=== PATIENT | female | born 1980 | race Caucasian/White ===

== ENCOUNTER 2023-05-07 18:33 | Emergency (ER) | payer MEDICAID ==
[2023-05-07] MEDS ORDERED: LIDOCAINE JELLY 2% 6 ML JEL.PF.APP TOP STA (18:53)
[2023-05-07 18:56] VITALS: O2SAT 98
--- NOTE | 2023-05-07 18:57 | ED Physician Documentation ---
PD HPI ABD PAIN - Stated complaint Stated Complaint: FEEDING TUBE CAME OUT - Chief complaint Chief Complaint: Abd Pain - History obtained from History obtained from: Patient (Undergoing cancer treatment and has a G-tube in place and it popped out just prior to arrival.) PD PAST MEDICAL HISTORY - Allergies Allergies/Adverse Reactions: Allergies Allergy/AdvReac Type Severity Reaction Status Date / Time amoxicillin Allergy Hives Verified 04/14/23 20:54 latex Allergy Rash Verified 04/14/23 20:54 citrate buffer Allergy Anaphylaxis Uncoded 04/14/23 20:55 PD ED PE NORMAL - Vitals Vital signs reviewed: Yes - General General: Alert and oriented X 3, No acute distress - Abdomen Abdomen: Normal bowel sounds, Soft, Non tender, Other (PEG tube site left upper quadrant) - Neuro Neuro: Alert and oriented X 3, Normal speech Results - Vitals Vitals: Vital Signs - 24 hr 05/07/23 05/07/23 18:45 20:24 Temperature 36 C L Heart Rate 65 60 Respiratory 16 16 Rate Blood Pressure 96/82 H 102/67 O2 Saturation 98 98 Oxygen O2 Source Room air - Rads (name of study) X-ray with Gastrografin to check tube function showing Gastrografin in the gastric lumen, no extraluminal contrast. Relevant Findings:: Final report received, EMP independent interpretation of test PD Medical Decision Making - ED course ED course: She had the PEG tube with her, she did not tolerate initial effort at replacement and a smaller coud Wood was placed to keep the track open pending some local anesthesia with lidocaine jelly. Subsequently I was able to replace her PEG tube and will check placement with x- ray with Gastrografin. Departure - Departure Disposition: 01 Home, Self Care Clinical Impression: S/P percutaneous endoscopic gastrostomy (PEG) tube placement, Migration of percutaneous endoscopic gastrostomy (PEG) tube Condition: Stable Record reviewed to determine appropriate education?: Yes Instructions: ED G Tube Replacement Forms: PCP List Discharge Date/Time: 05/07/23 20:24
[2023-05-07] MEDS ORDERED: HYDROcodone/ACETAM 7.5 MG/325 MG 15 ML UDC PO STA (19:29)
[2023-05-07] MEDS ORDERED: DIATR MEGLU/DIATRIZOATE SODIUM 120 ML BOTTLE PEG ONE (19:40)
[2023-05-07] MEDS ORDERED: DIATR MEGLU/DIATRIZOATE SODIUM 120 ML BOTTLE ONE (20:04)
[2023-05-07 20:27] VITALS: BP 102/67
--- NOTE | 2023-05-07 20:27 | XRAY Report ---
PROCEDURE: Abdomen 1 View X-Ray INDICATIONS: With Gastrografin via PEG tube to evaluate PEG tub TECHNIQUE: One view of the abdomen acquired. COMPARISON: 04/14/2023 FINDINGS: Percutaneous gastrostomy tube is present. Contrast injected through the tube opacifies the stomach bora men. No extraluminal contrast visualized. Non obstructive bowel gas pattern. IMPRESSION: Percutaneous gastrostomy tube is present. Contrast injected through the tube opacifies the stomach bora men. No extraluminal contrast visualized. Reviewed by: Ang Reed MD on 05/07/2023 8:26 PM PDT Approved by: Ang Reed MD on 05/07/2023 8:26 PM PDT Station ID: [id number]
== END 2023-05-07 20:24 | disposition home or self-care (01) ==
LOC: ED 18:33
DX: K94.23 Gastrostomy malfunction (principal)
CPT/HCPCS: 43762; 74018; 99283; A9270; Q9963

== ENCOUNTER 2023-06-14 11:06 | Outpatient (CLI) | payer MEDICAID ==
[2023-06-14 14:56] LABS: BASOPHILS # (AUTO) 0.1 10^3/uL (0.0-0.1); BASOPHILS % (AUTO) 0.8 %; EOSINOPHILS # (AUTO) 0.1 10^3/uL (0.0-0.7); EOSINOPHILS % (AUTO) 1.4 %; HCT - HEMATOCRIT 41.2 % (37.0-47.0); HGB - HEMOGLOBIN 13.1 g/dL (12.0-16.0); LYMPHOCYTES # (AUTO) 1.2 10^3/uL (1.5-3.5); LYMPHOCYTES % (AUTO) 19.1 %; MEAN CORPUSCULAR HEMOGLOBIN 28.2 pg (27.0-31.0); MEAN CORPUSCULAR HGB CONC 31.8 g/dL (32.0-36.0); MEAN CORPUSCULAR VOLUME 88.8 fL (81.0-99.0); MEAN PLATELET VOLUME 9.5 fL (7.9-10.8); MONOCYTES # (AUTO) 0.7 10^3/uL (0.0-1.0); MONOCYTES % (AUTO) 10.4 %; NEUTROPHILS # (AUTO) 4.3 10^3/uL (1.5-6.6); NEUTROPHILS % (AUTO) 68.1 %; PLT - PLATELET COUNT 435 10^3/uL (130-450); RED BLOOD COUNT 4.64 10^6/uL (4.20-5.40); RED CELL DISTRIBUTION WIDTH 12.8 % (12.0-15.0); WHITE BLOOD COUNT 6.3 x10^3/uL (4.8-10.8)
[2023-06-14 16:59] LABS: ALBUMIN 4.2 g/dL (3.2-5.5); ALBUMIN/GLOBULIN RATIO 1.5 (1.0-2.2); ALKALINE PHOSPHATASE 66 IU/L (42-121); ALT ALANINE AMINOTRANSFERASE 14 IU/L (10-60); AST ASPARTATE AMINOTRANSFERASE 17 IU/L (10-42); BILIRUBIN,TOTAL 0.4 mg/dL (0.2-1.0); BUN - BLOOD UREA NITROGEN 8 mg/dL (6-20); CALCIUM 9.5 mg/dL (8.5-10.3); CARBON DIOXIDE - CO2 29 mmol/L (21-32); CHLORIDE 103 mmol/L (101-111); CHOL/HDL RATIO 2.8 (<4.4); CHOLESTEROL 204 mg/dL; CREATININE 0.6 mg/dL (0.6-1.3); GFR - MDRD 109 (>89); GLUCOSE 89 mg/dL (74-104); HDL CHOLESTEROL 74 mg/dL; LDL CHOLESTEROL,CALCULATED 109 mg/dL; LDL/HDL RATIO 1.5 (<4.4); POTASSIUM 4.4 mmol/L (3.5-4.5); SODIUM 138 mmol/L (135-145); TRIGLYCERIDES 106 mg/dL (48-352); VLDL CHOLESTEROL 21 mg/dL
[2023-06-14 17:49] LABS: THYROID STIMULATING HORMONE 5.01 uIU/mL (0.34-5.60)
== END 2023-06-14 11:07 | disposition home or self-care (01) ==
LOC: LAB.S 11:06
PROVIDERS: ATTEND Physician Assistant Medical
DX: E03.9 Hypothyroidism, unspecified (principal); Z13.9 Encounter for screening, unspecified
CPT/HCPCS: 36415; 80053; 80061; 83721; 84443; 85025

== ENCOUNTER 2023-08-12 11:26 | Emergency (ER) | payer MEDICAID ==
[2023-08-12 12:01] LABS: BASOPHILS % (AUTO) 0.8 %; EOSINOPHILS # (AUTO) 0.2 10^3/uL (0.0-0.7); HCT - HEMATOCRIT 45.1 % (37.0-47.0); HGB - HEMOGLOBIN 14.5 g/dL (12.0-16.0); MEAN CORPUSCULAR HEMOGLOBIN 28.5 pg (27.0-31.0); MEAN CORPUSCULAR HGB CONC 32.2 g/dL (32.0-36.0); MEAN CORPUSCULAR VOLUME 88.8 fL (81.0-99.0); MONOCYTES # (AUTO) 0.4 10^3/uL (0.0-1.0); MONOCYTES % (AUTO) 8.8 %; NEUTROPHILS # (AUTO) 3.1 10^3/uL (1.5-6.6); PLT - PLATELET COUNT 403 10^3/uL (130-450); RED BLOOD COUNT 5.08 10^6/uL (4.20-5.40); RED CELL DISTRIBUTION WIDTH 12.2 % (12.0-15.0); WHITE BLOOD COUNT 4.8 x10^3/uL (4.8-10.8)
[2023-08-12 12:14] LABS: ALBUMIN 4.3 g/dL (3.2-5.5); ALBUMIN/GLOBULIN RATIO 1.3 (1.0-2.2); BILIRUBIN,TOTAL 0.3 mg/dL (0.2-1.0); CALCIUM 9.2 mg/dL (8.5-10.3); CREATININE 0.6 mg/dL (0.6-1.3); POTASSIUM 3.5 mmol/L (3.5-4.5); TOTAL PROTEIN 7.5 g/dL (6.4-8.9)
[2023-08-12 12:25] LABS: BILIRUBIN,URINE NEGATIVE (NEGATIVE); GLUCOSE, URINE (UA) NEGATIVE (NEGATIVE); KETONES,URINE (UA) NEGATIVE (NEGATIVE); LEUKOCYTE ESTERASE, URINE NEGATIVE (NEGATIVE); NITRITE,URINE POSITIVE (NEGATIVE); OCCULT BLOOD,URINE TRACE-INTA (NEGATIVE); PROTEIN,URINE NEGATIVE (NEGATIVE); UROBILINOGEN,URINE 0.2 (NORMAL) E.U./dL (NORMAL)
[2023-08-12 12:39] LABS: BACTERIA,URINE Many /HPF (None Seen); CLARITY,URINE CLOUDY (CLEAR); MUCUS,URINE Marked Strands; RBC,URINE 0-5 /HPF (0-5); SQUAMOUS EPITHELIAL CELL,UR MANY Squamous (<= Few)
--- NOTE | 2023-08-12 12:44 | ED Physician Documentation ---
PD HPI ABD PAIN - Stated complaint Stated Complaint: ABD PX - Chief complaint Chief Complaint: Abd Pain - History obtained from History obtained from: Patient - Additional information Additional information: 43-year-old woman with history of head neck cancer in remission, previously PEG tube dependent, history of remote tubal ligation, known ovarian cysts and fibroids and amenorrheic related to a remote endometrial ablation presents with right pelvic pain since yesterday similar to prior ovarian cysts. No vaginal discharge or bleeding. She does note foul-smelling urine without frequency or urgency. No fevers. 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 Other Past Medical History: Left sided neck tumor - Past Surgical History Past Surgical History: Yes /VEHICLE UPHOLSTERER: Tubal ligation - Present Medications Home Medications: Ambulatory Orders Medication Instructions Recorded Confirmed Dextroamphetamine/Amphetamine 20 mg PO BID 08/12/23 08/12/23 [Dextroamp-Amphetamine 5 mg Tab] HYDROcod/ACETAM 5/325 [[place] 5/325] 1 - 2 tab PO Q6H PRN #10 tablet 08/12/23 Levothyroxine [Synthroid] 100 mcg PO QDAC 08/12/23 08/12/23 Nitrofurantoin [Macrobid] 1 cap PO BID #10 cap 08/12/23 - Allergies Allergies/Adverse Reactions: Allergies Allergy/AdvReac Type Severity Reaction Status Date / Time amoxicillin Allergy Hives Verified 08/12/23 11:47 latex Allergy Rash Verified 08/12/23 11:47 malick Allergy Anaphylaxis Verified 08/12/23 11:47 orange Allergy Anaphylaxis Verified 08/12/23 11:47 pineapple Allergy Anaphylaxis Verified 08/12/23 11:47 citrate buffer Allergy Anaphylaxis Uncoded 08/12/23 11:47 - Social History Does the pt smoke?: Yes Smoking Status: Current every day smoker PD ED PE NORMAL - Vitals Vital signs reviewed: Yes - General General: Alert and oriented X 3, No acute distress - Abdomen Abdomen: Normal bowel sounds, Soft, Other (Mild right pelvic tenderness inferomedial to McBurney's point, no surgical signs) - Back Back: No CVA TTP, No spinal TTP - Neuro Neuro: Alert and oriented X 3, Normal speech Results - Vitals Vitals: Vital Signs - 24 hr 08/12/23 11:37 Temperature 36 C L Heart Rate 104 H Respiratory 16 Rate Blood Pressure 112/92 H O2 Saturation 94 Oxygen O2 Source Room air - Labs Labs: Laboratory Tests 08/12/23 08/12/23 08/12/23 11:50 11:56 11:56 WBC 4.8 RBC 5.08 Hgb 14.5 Hct 45.1 MCV 88.8 MCH 28.5 MCHC 32.2 RDW 12.2 Plt Count 403 MPV 9.0 Neut # (Auto) 3.1 Lymph # (Auto) 1.0 L [place] # (Auto) 0.4 Eos # (Auto) 0.2 Baso # (Auto) 0.0 Absolute Nucleated RBC 0.00 Nucleated RBC % 0.0 Sodium 138 Potassium 3.5 Chloride 101 Carbon Dioxide 29 Anion Gap 8.0 BUN 5 L Creatinine 0.6 Estimated GFR (MDRD) 109 Glucose 79 Calcium 9.2 Total Bilirubin 0.3 AST 15 ALT 19 Alkaline Phosphatase 56 Total Protein 7.5 Albumin 4.3 Globulin 3.2 Albumin/Globulin Ratio 1.3 Lipase 11 Urine Color YELLOW Urine Clarity CLOUDY Urine pH 6.0 Ur Specific Roundup 1.025 Urine Protein NEGATIVE Urine Glucose (UA) NEGATIVE Urine Ketones NEGATIVE Urine Occult Blood TRACE-INTA Urine Nitrite POSITIVE H Urine Bilirubin NEGATIVE Urine Urobilinogen 0.2 (NORMAL) Ur Leukocyte Esterase NEGATIVE Urine RBC 0-5 Urine WBC 11-25 H Ur Squamous Epith Cells MANY Squamous H Urine Bacteria Many H Urine Mucus Marked Strands Ur Microscopic Review INDICATED Urine Culture Comments NOT INDICATED PD Medical Decision Making - ED course ED course: She presents with right pelvic pain, she has a history of ovarian cysts and fibroids. Appendicitis is considered but fairly mild tenderness on exam and not in the typical location and her white count is low normal on CBC. CMP normal. Urinalysis does demonstrate positive nitrate and white cells so probably has a cystitis 2. I discussed with her options for image acquisition to rule out appendicitis. After discussion she would like to do watchful waiting given the low risk of appendicitis given her clinical presentation and labs. Departure - Departure Disposition: 01 Home, Self Care Clinical Impression: Pelvic pain in female Urinary tract infection Qualifiers: Urinary tract infection type: acute cystitis Hematuria presence: without hematuria Qualified Code(s): N30.00 - Acute cystitis without hematuria Condition: Good Record reviewed to determine appropriate education?: Yes Instructions: ED UTI Cystitis Female, ED Pelvic Pain UKO Prescriptions: Nitrofurantoin [Macrobid] 1 cap PO BID #10 cap HYDROcod/ACETAM 5/325 [[place] 5/325] 1 - 2 tab PO Q6H PRN #10 tablet PRN Reason: Pain Comments: I sent your prescriptions electronically to the [facility] in [place]. Please return immediately if you worsen or if you fail to improve over the next 24 hours or so, as discussed, appendicitis is very unlikely given the presentation and labs but still not completely impossible. Follow-up with [facility] gynecology as you are planning which I feel is appropriate.
[2023-08-12 13:02] VITALS: BP 112/72; O2SAT 100
== END 2023-08-12 12:55 | disposition home or self-care (01) ==
LOC: ED 11:26
DX: R10.2 Pelvic and perineal pain (principal); F17.200 Nicotine dependence, unspecified, uncomplicated
CPT/HCPCS: 36415; 80053; 81001; 81003; 83690; 85025; 87086; 99283

== ENCOUNTER 2023-11-29 12:57 | Outpatient (CLI) | payer MEDICAID ==
--- NOTE | 2023-12-05 09:47 | Mammography Report ---
BILATERAL DIGITAL SCREENING MAMMOGRAM 3D/2D WITH EXAGGERATED CC: 11/29/2023 CLINICAL: Routine screening. Family history of breast cancer. No prior exams were available for comparison. Both breasts are heterogeneously dense, which may obscure small masses (category c / 51-75% glandular tissue). No significant masses, calcifications, or other findings are seen in either breast. IMPRESSION: NEGATIVE There is no mammographic evidence of malignancy. A 1 year screening mammogram is recommended. Based on the Tyrer Cuzick model (a risk assessment model) the patient's lifetime risk is 9.0% and her 10 year risk is 1.4%. According to the ACR, ACS, and NCCN guidelines, an annual breast MRI exam yoanna g with mammogram is recommended if the patient's lifetime risk is 20% or greater. This exam was interpreted at Station ID: [id number]. NOTE: For mammograms, a report in lay terms will be sent to the patient. Approximately 15% of breast malignancies will not be visualized mammographically. In the management of a palpable breast mass, a negative mammogram must not discourage biopsy of a clinically suspicious lesion. Electronically Signed By: Manisha Ayala M.D., Ph.D. eb/estefanía:12/04/2023 13:51:47 letter sent: No_Letter ACR BI-RADS Category 1: Negative 3341F PARENCHYMAL PATTERN: (D) - The breast(s) demonstrate(s) heterogeneously dense fibroglandular parenchy ma. BI-RADS CATEGORY: (1) - 1 RECOMMENDATION: (ANNUAL) - Recommend routine annual screening mammography. [id number] 1 year screening LATERALITY: (B)
== END 2023-11-29 12:58 | disposition home or self-care (01) ==
LOC: DI 12:57
PROVIDERS: ATTEND Physician Assistant Medical
DX: Z12.31 Encounter for screening mammogram for malignant neoplasm of breast (principal); R92.333 Mammographic heterogeneous density, bilateral breasts; Z80.3 Family history of malignant neoplasm of breast

== ENCOUNTER 2023-12-20 08:20 | Outpatient (CLI) | payer MEDICAID ==
[2023-12-20] MEDS ORDERED: iohexoL-300 100 ML VIAL ONE (08:33)
[2023-12-20] MEDS: iohexoL-300 100 ML VIAL IVP ONE (08:45)
--- NOTE | 2023-12-20 14:56 | CT Report ---
PROCEDURE: CT neck with contrast INDICATIONS: 43-year-old female with new palpable abnormalities and history of oropharyngeal carcino ma. TECHNIQUE: Helical axial CT of the neck was obtained after an intravenous contrast injection, and re formatted in multiple planes. Radiation dose reduction was achieved using automated exposure control or adjustment of mA and/or kV according to patient size. COMPARISON: None. FINDINGS: Skull Base: The visualized intracranial contents, skull, and orbits are unremarkable. Visualized par anasal sinuses are clear. Pharynx and Larynx: Oropharynx is patulous, and the tongue appears somewhat asymmetrically atrophic on the left. Relatively decreased enhancement of the left parapharyngeal soft tissues, and there is b een a modified left neck dissection. Sternocleidomastoid intact.. Incidental note is made of soft tis leo plane extending. Palate to the posterior wall of the nasopharynx, possible mucosal band. Retroph aryngeal space unremarkable. Normal appearance of the false and true vocal cords. Muscles and Fascial Planes: Fascial planes are well maintained. No abscess or mass lesion. Lymph Nodes: No evidence of adenopathy. Vasculature: Unremarkable. Submandibular and Parotid Glands: Asymmetrically decreased left submandibular gland enhancement, pos sible sequela of XRT. Thyroid: Unremarkable. No enlarged or calcified nodules. Bones: No acute fracture. No osteolytic or blastic lesion is evident. Normal bone mineralization. D egenerative disc disease and arthropathy. Lung Apices: The visualized lung apices are clear. IMPRESSION: There is asymmetrically decreased enhancement of the left parapharyngeal soft tissues including the l eft submandibular gland. Associated left modified neck dissection sparing the sternocleidomastoid. No adenopathy or evidence of recurrent or residual disease Reviewed by: Gibran Noe MD on 12/20/2023 1:55 PM AKDT Approved by: Gibran Noe MD on 12/20/2023 1:55 PM AKDT Station ID: [id number]
== END 2023-12-20 08:21 | disposition home or self-care (01) ==
LOC: DI 08:20
DX: C10.9 Malignant neoplasm of oropharynx, unspecified (principal); Z98.890 Other specified postprocedural states
CPT/HCPCS: 70491; Q9967

== ENCOUNTER 2023-12-22 18:07 | Emergency (ER) | payer MEDICAID ==
--- NOTE | 2023-12-22 18:31 | ED Physician Documentation ---
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 She also has ovarian cysts with remote tubal ligation, fibroids, and endometrial ablation and is amenorrheic related to that. She is been having some ongoing lower abdominal pain related to known ovarian cyst but today, an hour ago at work developed sudden onset upper abdominal pain radiating to both shoulders that is completely different than what she has been having ongoing. She is not nauseous with it. No urinary complaints. PD PAST MEDICAL HISTORY - Past Medical History Past Medical History: Yes Cardiovascular: None Respiratory: None Neuro: Headaches, Migraines Endocrine/Autoimmune: HyPOthyroidism GI: Chronic diarrhea, Other HEEL REDUCER: Endometriosis, Ovarian cysts, Fibroids : None HEENT: None Psych: None Musculoskeletal: Osteoarthritis - Past Surgical History Past Surgical History: Yes /HEEL REDUCER: Endometrial ablation, Tubal ligation HEENT: Tonsil/Adenoidectomy - Present Medications Home Medications: Ambulatory Orders Medication Instructions Recorded Confirmed Dextroamphetamine/Amphetamine 20 mg PO BID 08/12/23 12/22/23 [Dextroamp-Amphetamine 5 mg Tab] Levothyroxine [Synthroid] 100 mcg PO QDAC 08/12/23 12/22/23 Norethindrone Acetate 5 mg ORAL DAILY 12/22/23 12/22/23 - Allergies Allergies/Adverse Reactions: Allergies Allergy/AdvReac Type Severity Reaction Status Date / Time amoxicillin Allergy Hives Verified 12/22/23 18:13 latex Allergy Rash Verified 12/22/23 18:13 malick Allergy Anaphylaxis Verified 12/22/23 18:13 orange Allergy Anaphylaxis Verified 12/22/23 18:13 pineapple Allergy Anaphylaxis Verified 12/22/23 18:13 citrate buffer Allergy Anaphylaxis Uncoded 08/12/23 11:47 - Social History Does the pt smoke?: Yes Smoking Status: Current every day smoker Does the pt drink ETOH?: Yes Does the pt have substance abuse?: Yes Substance Use and Type: Marijuana - Immunizations Immunizations are current?: Yes - POLST Patient has POLST: No PD ED PE NORMAL - Vitals Vital signs reviewed: Yes - General General: Alert and oriented X 3, Other (Appears mildly uncomfortable but not in overt distress.) - Cardiac Cardiac: RRR, No murmur - Respiratory Respiratory: No respiratory distress, Clear bilaterally - Abdomen Abdomen: Normal bowel sounds, Soft, Other (Mild diffuse tenderness most marked in the upper abdomen without surgical signs) - Extremities Extremities: No edema, No calf tenderness / cord - Neuro Neuro: Alert and oriented X 3 Results - Vitals Vitals: Vital Signs - 24 hr 12/22/23 12/22/23 12/22/23 18:13 18:52 20:19 Temperature 36.4 C L Heart Rate 84 81 66 Respiratory 18 20 16 Rate Blood Pressure 131/84 H 118/88 H 110/77 O2 Saturation 100 97 97 Oxygen O2 Source Room air - EKG (time done) 1838 EKG releavant findings:: EKG personally interpreted by author of this note. Relevant findings are: Rate: Rate (enter#) Rhythm: NSR [place]: Normal Intervals: Normal [place] QRS: Normal Ischemia: Non specific changes Computer interpretation: Agree with computer - Labs Labs: Laboratory Tests 12/22/23 12/22/23 18:40 18:40 WBC 5.3 RBC 4.26 Hgb 12.5 Hct 37.5 MCV 88.0 MCH 29.3 MCHC 33.3 RDW 12.7 Plt Count 394 MPV 9.4 Neut # (Auto) 3.5 Lymph # (Auto) 1.2 L [place] # (Auto) 0.3 Eos # (Auto) 0.1 Baso # (Auto) 0.1 Absolute Nucleated RBC 0.00 Nucleated RBC % 0.0 Sodium 138 Potassium 3.1 L Chloride 103 Carbon Dioxide 27 Anion Gap 8.0 BUN 4 L Creatinine 0.6 Estimated GFR (MDRD) 109 Glucose 94 Calcium 9.0 Total Bilirubin 0.3 AST 13 ALT 10 Alkaline Phosphatase 48 Total Protein 6.6 Albumin 4.0 Globulin 2.6 Albumin/Globulin Ratio 1.5 Lipase 19 - Rads (name of study) CT abd- neg Relevant Findings:: Final report received, EMP independent interpretation of test PD Medical Decision Making - ED course ED course: She presents with new severe sudden onset upper abdominal pain. She is tender which makes ACS less likely but will screen for with an EKG which was nonischemic. The gamut of intra-abdominal emergencies was considered. Workup demonstrates a normal CBC. CMP only notable for modest hypokalemia and she was given an IV dose of potassium. CT official read was normal/negative. That said to my eye she had a fairly large and full gastrum so I question may be some gastric dysmotility versus overeating. She was administered divided doses of Dilaudid but what really helped her was a dose of Reglan with the thought that she would get some benefit from the promotility effect. Departure - Departure Disposition: Home, Self Care Clinical Impression: Abdominal pain Qualifiers: Abdominal location: epigastric Qualified Code(s): R10.13 - Epigastric pain Condition: Good Record reviewed to determine appropriate education?: Yes Instructions: ED Abdominal Pain Female Non-Specific Abdominal Pain Comments: The diagnostic testing was unremarkable except for the low potassium. That should not be related to the current pain. The official read on your CT was negative, but I noticed a fairly full stomach which I suspect is related since you got some relief with the promotility agent Reglan/metoclopramide. I would do a clear liquid diet tonight. Call your doctor to arrange a follow-up appointment, make the next available appointment. In the interim, return anytime if worse or if new symptoms develop. Forms: PCP List
[2023-12-22] MEDS: HYDROmorphone 1 MG/ML CARPUJECT IVP STA ×2 (18:44→19:50)
[2023-12-22] MEDS ORDERED: iohexoL-300 100 ML VIAL ONE (18:53)
[2023-12-22 19:11] LABS: BASOPHILS # (AUTO) 0.1 10^3/uL (0.0-0.1); BASOPHILS % (AUTO) 1.1 %; EOSINOPHILS # (AUTO) 0.1 10^3/uL (0.0-0.7); EOSINOPHILS % (AUTO) 2.7 %; HCT - HEMATOCRIT 37.5 % (37.0-47.0); HGB - HEMOGLOBIN 12.5 g/dL (12.0-16.0); LYMPHOCYTES # (AUTO) 1.2 10^3/uL (1.5-3.5); LYMPHOCYTES % (AUTO) 22.6 %; MEAN CORPUSCULAR HEMOGLOBIN 29.3 pg (27.0-31.0); MEAN CORPUSCULAR HGB CONC 33.3 g/dL (32.0-36.0); MEAN PLATELET VOLUME 9.4 fL (7.9-10.8); MONOCYTES # (AUTO) 0.3 10^3/uL (0.0-1.0); MONOCYTES % (AUTO) 6.3 %; NEUTROPHILS # (AUTO) 3.5 10^3/uL (1.5-6.6); NEUTROPHILS % (AUTO) 67.1 %; PLT - PLATELET COUNT 394 10^3/uL (130-450); RED BLOOD COUNT 4.26 10^6/uL (4.20-5.40); RED CELL DISTRIBUTION WIDTH 12.7 % (12.0-15.0); WHITE BLOOD COUNT 5.3 x10^3/uL (4.8-10.8)
[2023-12-22 19:25] LABS: ALBUMIN/GLOBULIN RATIO 1.5 (1.0-2.2); BILIRUBIN,TOTAL 0.3 mg/dL (0.2-1.0); CREATININE 0.6 mg/dL (0.6-1.3); POTASSIUM 3.1 mmol/L (3.5-4.5); TOTAL PROTEIN 6.6 g/dL (6.4-8.9)
[2023-12-22] MEDS: iohexoL-300 100 ML VIAL IVP ONE (19:56)
--- NOTE | 2023-12-22 20:07 | CT Report ---
PROCEDURE: Abdomen/Pelvis W INDICATIONS: upper abd pain iv only CONTRAST: 100 ML OMNI 300 TECHNIQUE: After the administration of intravenous contrast, a CT scan of the abdomen and pelvis was performed. Images were recorded and evaluated at appropriate window settings. Reformats: coronal and sagittal. F or radiation dose reduction, the following was used: automated exposure control, adjustment of mA and /or kV according to patient size. COMPARISON: Abdomen radiograph 05/07/2023 FINDINGS: Image quality: Diagnostic. Lower chest: Unremarkable. Liver: No solid mass. Gallbladder: No radiopaque stones or wall thickening. Biliary tree: No intrahepatic or extrahepatic dilation, accounting for age. Spleen: No splenomegaly. Pancreas: No pancreatic ductal dilation. Adrenals: No adrenal nodule. Kidneys and ureters: No hydronephrosis. No renal cystic lesion which requires follow up. No solid mas s. Stomach, bowel and peritoneum: No gastric or small bowel dilation. No abnormal wall thickening. No pa thologic free fluid. Normal appendix. Lymph nodes: No central or retroperitoneal adenopathy. Vessels: No infrarenal aortic aneurysm. Patent portal vein. PELVIS Reproductive organs: Unremarkable. Bladder: No abnormal wall thickening, accounting for underdistention. Pelvic lymph nodes: No pelvic adenopathy by size criteria. Bones: No aggressive osseous abnormality. Other: No significant ventral or inguinal hernia. Subcutaneous scarring is seen at the left upper dio drant from prior gastric tube, which is been removed. IMPRESSION: No acute abnormality is seen in the abdomen or pelvis. No source for the reported pain identified. Reviewed by: Ang Armas MD on 12/22/2023 8:05 PM PDT Approved by: Ang Armas MD on 12/22/2023 8:05 PM PDT Station ID: [id number]
[2023-12-22] MEDS: METOCLOPRAMIDE 10 MG/2 ML VIAL IVP STA (20:20)
[2023-12-22] MEDS: SODIUM CHLORIDE 0.9% 1,000 ML IV STA (20:27)
[2023-12-22] MEDS: POTASSIUM CHLOR 10 MEQ/100 ML 10 MEQ/100 ML BAG IV ONE (20:27)
[2023-12-22 21:37] VITALS: BP 110/88; O2SAT 100
== END 2023-12-22 21:28 | disposition home or self-care (01) ==
LOC: ED 18:07
DX: R10.13 Epigastric pain (principal); E03.9 Hypothyroidism, unspecified; N80.9 Endometriosis, unspecified; Z87.42 Personal history of other diseases of the female genital tract; Z85.89 Personal history of malignant neoplasm of other organs and systems; F17.200 Nicotine dependence, unspecified, uncomplicated
CPT/HCPCS: 36415; 74177; 80053; 83690; 85025; 93005; 96365; 96375; 96376; 99284; 99285; J1170; J2765; Q9967